=== PATIENT | female | born 1955 | race Caucasian/White ===

== ENCOUNTER 2018-03-25 12:46 | Emergency (ER) | payer BC, OTHER ==
[~2018-03-25] VITALS: Ht 154.9 cm; Wt 61.2 kg
[~2018-03-25 12:46] MED LIST: Amitiza24 MCG PO; Atenolol-Chlor1 EACH PO; CITA20 PO; CYCL10 PO; Chantix1 EACH; ESTR2 PO; FURO20 PO; GABA300 PO; GABA600 PO; HYDACE5 PO; Hydrocodone-Ap1 EA23 PO; IBUP800 PO; Inderal40 MG PO; LEVSOD100 PO; LEVSOD112 PO; LINZESS290 MCG PO; METO10 PO; NAPR500 PO; OMEP20ER PO; OMEPRAZOLE MAGN20 MG PO; OXYACE5T PO; PRAV20 PO; PRIM50 PO; PROP10
[2018-03-25] MEDS ORDERED: ALBU90OI INH (15:04)
[2018-03-25] MEDS ORDERED: Aerochamber1 EACH INH (15:04)
== END 2018-03-25 15:33 | disposition home or self-care (01) ==
LOC: ER 12:46
DX: J44.9 Chronic obstructive pulmonary disease, unspecified (principal); Z79.899 Other long term (current) drug therapy; I10 Essential (primary) hypertension; E78.5 Hyperlipidemia, unspecified; F17.210 Nicotine dependence, cigarettes, uncomplicated
CPT/HCPCS: 71046; 93005; 93010; 94640; 99283-25

== ENCOUNTER 2022-08-01 07:12 | Day surgery (SDC) | payer OTHER ==
[~2022-08-01] VITALS: Ht 154.9 cm; Wt 65.3 kg
[~2022-08-01 07:12] MED LIST changes: +ALBU90OI INH; +Aerochamber1 EACH INH
[2022-08-01] MEDS ORDERED: IPRATROPIUM BRO30 ML (08:26)
[2022-08-01 10:30] VITALS: BP 117/86
== END 2022-08-01 11:24 | disposition home or self-care (01) ==
LOC: ORSCSDS 07:12
PROVIDERS: Podiatrist Foot & Ankle Surgery
PROC: 0SGM04Z Fusion of Right Metatarsal-Phalangeal Joint with Internal Fixation Device, Open Approach (ICD-10-PCS; principal; 2022-08-01 09:00)
DX: M20.5X1 Other deformities of toe(s) (acquired), right foot (principal); I10 Essential (primary) hypertension; E78.5 Hyperlipidemia, unspecified; J45.909 Unspecified asthma, uncomplicated; F17.210 Nicotine dependence, cigarettes, uncomplicated; E03.9 Hypothyroidism, unspecified; I73.00 Raynaud's syndrome without gangrene; Z85.51 Personal history of malignant neoplasm of bladder; G62.9 Polyneuropathy, unspecified; Z79.899 Other long term (current) drug therapy; Z79.82 Long term (current) use of aspirin
CPT/HCPCS: A9270; C1713; J0171; J0690; J2250; J2704; J2795; J3010

== ENCOUNTER 2022-09-24 01:44 | Day surgery (SDC) | payer BC, OTHER ==
[~2022-09-24 01:44] MED LIST changes: +IPRATROPIUM BRO30 ML
== END 2022-09-24 22:48 | disposition home or self-care (01) ==
LOC: WOUND 01:44
DX: T81.30XA Disruption of wound, unspecified, initial encounter (principal); Z88.2 Allergy status to sulfonamides; F17.200 Nicotine dependence, unspecified, uncomplicated; M20.20 Hallux rigidus, unspecified foot; M19.079 Primary osteoarthritis, unspecified ankle and foot
CPT/HCPCS: A9270; G0463

== ENCOUNTER 2022-09-29 00:18 | Day surgery (SDC) | payer BC, OTHER | END 2022-09-29 22:59 | disposition home or self-care (01) | LOC: WOUND 00:18 | DX: T81.31XD Disruption of external operation (surgical) wound, not elsewhere classified, subsequent encounter (principal); L97.512 Non-pressure chronic ulcer of other part of right foot with fat layer exposed; M20.20 Hallux rigidus, unspecified foot; R60.0 Localized edema; M79.673 Pain in unspecified foot; M19.079 Primary osteoarthritis, unspecified ankle and foot; Y83.8 Other surgical procedures as the cause of abnormal reaction of the patient, or of later complication, without mention of misadventure at the time of the procedure; Z72.0 Tobacco use | CPT/HCPCS: A9270; G0463 ==

== ENCOUNTER 2022-10-06 13:10 | Day surgery (SDC) | payer OTHER ==
[~2022-10-06] VITALS: Ht 154.9 cm; Wt 65.4 kg
[2022-10-06] MEDS ORDERED: IBUP200 PO (13:43)
[2022-10-06] MEDS ORDERED: AMOX-CLAV 500-1 EAC5 (13:44)
--- NOTE | 2022-10-06 13:55 | NUR ---
10/06/22 135 Mahsa Douglas OPEN WOUND TO THE R FOOT 1ST METATARSAL, HARDWARE EXPOSED NO KO WIPE PERFORMED
--- NOTE | 2022-10-06 15:35 | NUR ---
10/06/22 1535 Yessy Simon AT [facility] WHERE FAILED HARDWARE IS SHOWING.
[2022-10-06 16:04] VITALS: BP 114/67
== END 2022-10-06 16:45 | disposition home or self-care (01) ==
LOC: ORSCSDS 13:10
PROVIDERS: Podiatrist Foot & Ankle Surgery
PROC: 0SPM04Z Removal of Internal Fixation Device from Right Metatarsal-Phalangeal Joint, Open Approach (ICD-10-PCS; principal; 2022-10-06 14:45)
PROC: 0QBN0ZZ Excision of Right Metatarsal, Open Approach (ICD-10-PCS; principal; 2022-10-06 14:45)
DX: T84.119A Breakdown (mechanical) of internal fixation device of unspecified bone of limb, initial encounter (principal); I10 Essential (primary) hypertension; J45.909 Unspecified asthma, uncomplicated; K21.9 Gastro-esophageal reflux disease without esophagitis; Z79.899 Other long term (current) drug therapy; F17.210 Nicotine dependence, cigarettes, uncomplicated
CPT/HCPCS: J0171; J0690; J2250; J2704; J2795; J3010; J7120

== ENCOUNTER 2022-11-20 01:21 | Day surgery (SDC) | payer OTHER ==
[~2022-11-20 01:21] MED LIST changes: +AMOX-CLAV 500-1 EAC5; +IBUP200 PO
== END 2022-11-20 22:38 | disposition home or self-care (01) ==
LOC: WOUND 01:21
DX: T81.31XA Disruption of external operation (surgical) wound, not elsewhere classified, initial encounter (principal); M19.079 Primary osteoarthritis, unspecified ankle and foot; I73.9 Peripheral vascular disease, unspecified; Z72.0 Tobacco use; Y83.8 Other surgical procedures as the cause of abnormal reaction of the patient, or of later complication, without mention of misadventure at the time of the procedure
CPT/HCPCS: 99406; A9270

== ENCOUNTER 2022-11-27 02:25 | Day surgery (SDC) | payer OTHER | END 2022-11-27 22:51 | disposition home or self-care (01) | LOC: WOUND 02:25 | DX: T81.31XA Disruption of external operation (surgical) wound, not elsewhere classified, initial encounter (principal); Y83.8 Other surgical procedures as the cause of abnormal reaction of the patient, or of later complication, without mention of misadventure at the time of the procedure; L97.512 Non-pressure chronic ulcer of other part of right foot with fat layer exposed; T84.11 Breakdown (mechanical) of internal fixation device of bones of limb; Y79.3 Surgical instruments, materials and orthopedic devices (including sutures) associated with adverse incidents; M19.079 Primary osteoarthritis, unspecified ankle and foot; Z72.0 Tobacco use; I73.9 Peripheral vascular disease, unspecified | CPT/HCPCS: 99406; A9270 ==

== ENCOUNTER 2022-12-04 02:05 | Day surgery (SDC) | payer OTHER | END 2022-12-04 22:39 | disposition home or self-care (01) | LOC: WOUND 02:05 | DX: T81.31XA Disruption of external operation (surgical) wound, not elsewhere classified, initial encounter (principal); Y83.8 Other surgical procedures as the cause of abnormal reaction of the patient, or of later complication, without mention of misadventure at the time of the procedure; L97.512 Non-pressure chronic ulcer of other part of right foot with fat layer exposed; M19.079 Primary osteoarthritis, unspecified ankle and foot; T84.11 Breakdown (mechanical) of internal fixation device of bones of limb; I73.9 Peripheral vascular disease, unspecified; Z72.0 Tobacco use | CPT/HCPCS: A9270 ==

== ENCOUNTER 2022-12-11 03:01 | Day surgery (SDC) | payer OTHER | END 2022-12-11 23:05 | disposition home or self-care (01) | LOC: WOUND 03:01 | DX: L97.512 Non-pressure chronic ulcer of other part of right foot with fat layer exposed (principal); T84.11 Breakdown (mechanical) of internal fixation device of bones of limb; Y79.8 Miscellaneous orthopedic devices associated with adverse incidents, not elsewhere classified; M19.079 Primary osteoarthritis, unspecified ankle and foot; Z72.0 Tobacco use; I73.9 Peripheral vascular disease, unspecified | CPT/HCPCS: G0463 ==

== ENCOUNTER 2022-12-18 08:00 | Day surgery (SDC) | payer OTHER | END 2022-12-18 23:59 | disposition home or self-care (01) | LOC: WOUND 08:00 | DX: T84.11 Breakdown (mechanical) of internal fixation device of bones of limb (principal); T81.31XD Disruption of external operation (surgical) wound, not elsewhere classified, subsequent encounter; M19.079 Primary osteoarthritis, unspecified ankle and foot; I73.9 Peripheral vascular disease, unspecified; Z72.0 Tobacco use; Y83.8 Other surgical procedures as the cause of abnormal reaction of the patient, or of later complication, without mention of misadventure at the time of the procedure | CPT/HCPCS: 99406 ==

== ENCOUNTER 2022-12-25 01:44 | Day surgery (SDC) | payer OTHER | END 2022-12-25 23:34 | disposition home or self-care (01) | LOC: WOUND 01:44 | DX: T81.31XA Disruption of external operation (surgical) wound, not elsewhere classified, initial encounter (principal); Y83.8 Other surgical procedures as the cause of abnormal reaction of the patient, or of later complication, without mention of misadventure at the time of the procedure; L97.512 Non-pressure chronic ulcer of other part of right foot with fat layer exposed; T84.11 Breakdown (mechanical) of internal fixation device of bones of limb; Y79.2 Prosthetic and other implants, materials and accessory orthopedic devices associated with adverse incidents; M19.079 Primary osteoarthritis, unspecified ankle and foot; I73.9 Peripheral vascular disease, unspecified; Z72.0 Tobacco use | CPT/HCPCS: A9270 ==

== ENCOUNTER 2023-01-01 03:22 | Day surgery (SDC) | payer OTHER | END 2023-01-01 22:43 | disposition home or self-care (01) | LOC: WOUND 03:22 | DX: T81.31XD Disruption of external operation (surgical) wound, not elsewhere classified, subsequent encounter (principal); M19.079 Primary osteoarthritis, unspecified ankle and foot; L97.512 Non-pressure chronic ulcer of other part of right foot with fat layer exposed; I73.9 Peripheral vascular disease, unspecified; Z72.0 Tobacco use; Y83.8 Other surgical procedures as the cause of abnormal reaction of the patient, or of later complication, without mention of misadventure at the time of the procedure | CPT/HCPCS: 99406; A9270 ==

== ENCOUNTER 2023-01-08 03:16 | Day surgery (SDC) | payer OTHER | END 2023-01-08 22:36 | disposition home or self-care (01) | LOC: WOUND 03:16 | PROC: 0JBQ0ZZ Excision of Right Foot Subcutaneous Tissue and Fascia, Open Approach (ICD-10-PCS; principal; 2023-01-08) | DX: I70.25 Atherosclerosis of native arteries of other extremities with ulceration (principal); L97.512 Non-pressure chronic ulcer of other part of right foot with fat layer exposed; T81.31XD Disruption of external operation (surgical) wound, not elsewhere classified, subsequent encounter; M19.079 Primary osteoarthritis, unspecified ankle and foot; Z72.0 Tobacco use; Y83.8 Other surgical procedures as the cause of abnormal reaction of the patient, or of later complication, without mention of misadventure at the time of the procedure | CPT/HCPCS: A9270 ==

== ENCOUNTER 2023-01-15 05:12 | Day surgery (SDC) | payer BC, MEDICARE, OTHER | END 2023-01-15 22:45 | disposition home or self-care (01) | LOC: WOUND 05:12 | DX: L97.512 Non-pressure chronic ulcer of other part of right foot with fat layer exposed (principal); T84.11 Breakdown (mechanical) of internal fixation device of bones of limb; M79.672 Pain in left foot; M19.079 Primary osteoarthritis, unspecified ankle and foot; I73.9 Peripheral vascular disease, unspecified; Z72.0 Tobacco use | CPT/HCPCS: A9270 ==

== ENCOUNTER 2023-01-22 05:04 | Day surgery (SDC) | payer BC, MEDICARE, OTHER | END 2023-01-22 22:50 | disposition home or self-care (01) | LOC: WOUND 05:04 | DX: T81.31XA Disruption of external operation (surgical) wound, not elsewhere classified, initial encounter (principal); Y83.8 Other surgical procedures as the cause of abnormal reaction of the patient, or of later complication, without mention of misadventure at the time of the procedure; L97.512 Non-pressure chronic ulcer of other part of right foot with fat layer exposed; T84.11 Breakdown (mechanical) of internal fixation device of bones of limb; M79.673 Pain in unspecified foot; Z72.0 Tobacco use; I73.9 Peripheral vascular disease, unspecified | CPT/HCPCS: A9270 ==

== ENCOUNTER 2023-01-26 00:39 | Day surgery (SDC) | payer BC, MEDICARE, OTHER | END 2023-01-26 22:49 | disposition home or self-care (01) | LOC: WOUND 00:39 | DX: T81.30XD Disruption of wound, unspecified, subsequent encounter (principal); L97.512 Non-pressure chronic ulcer of other part of right foot with fat layer exposed; T84.11 Breakdown (mechanical) of internal fixation device of bones of limb; M19.079 Primary osteoarthritis, unspecified ankle and foot; Z72.0 Tobacco use; I73.9 Peripheral vascular disease, unspecified | CPT/HCPCS: 99406; A9270 ==